=== PATIENT | male | born 1960 | race Caucasian/White ===

== ENCOUNTER → 2024-02-12 15:42 | Outpatient (REF) | payer OTHER, SELFPAY | LOC: HWRAD 15:42 | PROVIDERS: ATTENDING PHYSICIAN Internal Medicine | DX: J20.9 Acute bronchitis, unspecified (principal) | CPT/HCPCS: 71046 ==

== ENCOUNTER → 2024-02-26 13:10 | Outpatient (REF) | payer OTHER, SELFPAY ==
[2024-02-26 14:10] LABS: Urine Albumin Negative (Neg - Trace); Urine Bilirubin Negative (Negative); Urine Character Clear (Clear); Urine Color Yellow; Urine Glucose Negative (Negative); Urine Ketone Negative (Negative); Urine Leukocyte Negative (Negative); Urine Nitrite Negative (Negative); Urine Occult Blood Negative (Negative); Urine Urobilinogen Negative (Neg - 1+)
[2024-02-26 14:16] LABS: Hematocrit 48.1 % (39.0-52.0); Hemoglobin 15.8 g/dL (13.0-18.0); Mean Corp Hgb Conc. 32.8 g/dL (33.0-37.0); Mean Corpuscular Hgb 30.6 pg (27.0-31.0); Mean Corpuscular Volume 93.2 fL (80.0-94.0); Platelet Count 296 10^3/uL (130-400); Red Blood Cell Count 5.16 10^6/uL (4.70-6.10); Red Cell Dist. Width 12.9 % (11.5-14.5); White Blood Cell Count 16.3 10^3/uL (4.8-10.8)
[2024-02-26 14:50] LABS: ALT (SGPT) 38 U/L (0-50); AST (SGOT) 29 U/L (17-59); Albumin 4.7 g/dl (3.5-5.0); Alkaline Phosphatase 62 U/L (38-126); Blood Urea Nitrogen 13 mg/dl (9-20); Calcium 9.7 mg/dl (8.4-10.2); Carbon Dioxide 29 mmol/L (22-30); Chloride 102 mmol/L (98-107); HDL Cholesterol 48 mg/dl; LDL Cholesterol, Calculated 62 mg/dl; Potassium 4.6 mmol/L (3.5-5.1); Sodium 140 mmol/L (135-145); Total Bilirubin 0.8 mg/dl (0.2-1.3); Total Cholesterol 140 mg/dl (50-199); Triglyceride 153 mg/dl (10-149); Very Low Density Lipoprotein 30 mg/dl (0-30); eGFR > 60.00
[2024-02-26 14:53] LABS: Absolute Neutrophils -Man Diff 6.1 10^3/uL (1.4-6.5); Atypical Lymphocytes 22 %; Band Neutrophils 0 % (0-3); Eosinophils 3 % (0-6); Lymphocytes 31 % (20-51); Monocytes 5 % (2-9); Platelets Checked Yes; Segmented Neutrophils 38 % (42-75)
[2024-02-26 14:54] LABS: Normal RBC Morphology Yes; Total Cells Counted 100
[2024-02-26 14:59] LABS: Glucose 76 mg/dl (70-99)
[2024-02-26 15:03] LABS: Vitamin D, 25-OH*** 39.6 ng/mL (30-80)
[2024-02-26 15:16] LABS: PSA, Total - Screen 4.04 ng/ml (0.0-4.0)
== END ==
LOC: REG 13:10
PROVIDERS: ATTENDING PHYSICIAN Internal Medicine Geriatric Medicine
DX: E78.2 Mixed hyperlipidemia (principal); M79.10 Myalgia, unspecified site; I63.9 Cerebral infarction, unspecified; D32.0 Benign neoplasm of cerebral meninges; I10 Essential (primary) hypertension; G47.33 Obstructive sleep apnea (adult) (pediatric); E55.9 Vitamin D deficiency, unspecified; R21 Rash and other nonspecific skin eruption; I73.9 Peripheral vascular disease, unspecified; Z13.89 Encounter for screening for other disorder
CPT/HCPCS: 36415; 80053; 80061; 81003; 82306; 85025; G0103

== ENCOUNTER → 2024-12-19 10:18 | Outpatient (REF) | payer OTHER, SELFPAY ==
[2024-12-19 11:05] LABS: Urine Character Clear (Clear)
[2024-12-19 11:09] LABS: Hematocrit 46.4 % (39.0-52.0); Hemoglobin 14.9 g/dL (13.0-18.0); Mean Corp Hgb Conc. 32.1 g/dL (33.0-37.0); Mean Corpuscular Volume 93.2 fL (80.0-94.0); Platelet Count 292 10^3/uL (130-400); Red Cell Dist. Width 12.9 % (11.5-14.5)
[2024-12-19 11:14] LABS: Urine Red Blood Cell 0-2 /HPF (0-2); Urine Squamous Cell 0-2 /LPF (Few)
[2024-12-19 11:25] LABS: Absolute Neutrophils -Man Diff 8.2 10^3/uL (1.4-6.5); Platelets Checked Yes
[2024-12-19 11:26] LABS: Normal RBC Morphology Yes; Total Cells Counted 100
[2024-12-19 12:59] LABS: ALT (SGPT) 31 U/L (0-50); AST (SGOT) 23 U/L (17-59); Albumin 4.2 g/dl (3.5-5.0); Alkaline Phosphatase 78 U/L (38-126); Blood Urea Nitrogen 15 mg/dl (9-20); Calcium 9.0 mg/dl (8.4-10.2); Carbon Dioxide 29 mmol/L (22-30); Chloride 104 mmol/L (98-107); Glucose 99 mg/dl (70-99); HDL Cholesterol 46 mg/dl; LDL Cholesterol, Calculated 52 mg/dl; Potassium 4.7 mmol/L (3.5-5.1); Sodium 138 mmol/L (135-145); Total Protein 6.6 g/dl (6.3-8.2); Very Low Density Lipoprotein 14 mg/dl (0-30); eGFR > 60.00
[2024-12-19 13:36] LABS: PSA, Total - Screen 3.81 ng/ml (0.0-4.0)
== END ==
LOC: REG 10:18
PROVIDERS: ATTENDING PHYSICIAN Nurse Practitioner Family; FAMILY PHYSICIAN Internal Medicine Geriatric Medicine
DX: I10 Essential (primary) hypertension (principal); E78.2 Mixed hyperlipidemia; I63.9 Cerebral infarction, unspecified; D32.0 Benign neoplasm of cerebral meninges; G47.33 Obstructive sleep apnea (adult) (pediatric); I73.9 Peripheral vascular disease, unspecified; Z12.5 Encounter for screening for malignant neoplasm of prostate
CPT/HCPCS: 36415; 80053; 80061; 81003; 81015; 84443; 85025; G0103

== ENCOUNTER → 2024-12-20 11:25 | Outpatient (REF) | payer OTHER, SELFPAY | LOC: HWRAD 11:25 | PROVIDERS: ATTENDING PHYSICIAN Nurse Practitioner Family | DX: R35.1 Nocturia (principal) | CPT/HCPCS: 76857 ==

== ENCOUNTER → 2025-01-14 13:03 | Outpatient (REF) | payer OTHER, SELFPAY ==
[2025-01-14 13:51] LABS: Hematocrit 46.7 % (39.0-52.0); Hemoglobin 15.0 g/dL (13.0-18.0); Mean Corp Hgb Conc. 32.1 g/dL (33.0-37.0); Mean Corpuscular Volume 96.1 fL (80.0-94.0); Platelet Count 235 10^3/uL (130-400); Red Cell Dist. Width 13.2 % (11.5-14.5)
[2025-01-14 14:20] LABS: Absolute Neutrophils -Man Diff 4.1 10^3/uL (1.4-6.5)
[2025-01-14 14:21] LABS: Normal RBC Morphology Yes; Platelets Checked Yes; Total Cells Counted 100
== END ==
LOC: REG 13:03
PROVIDERS: ATTENDING PHYSICIAN Nurse Practitioner Family; FAMILY PHYSICIAN Internal Medicine Geriatric Medicine
DX: D72.829 Elevated white blood cell count, unspecified (principal)
CPT/HCPCS: 36415; 85025